=== PATIENT | female | born 1955 | race Asian ===

== ENCOUNTER → 2017-10-02 11:34 | Outpatient (CLI) | payer OTHER, SELFPAY ==
--- NOTE | 2017-10-02 11:38 | RAD_ITS ---
STUDY: X-RAY - RIGHT FOOT CLINICAL: Female, 62 years old. Soft tissue wound on second toe. TECHNIQUE: 3 view(s) of the foot. COMPARISON: None. FINDINGS: Normal talus, calcaneus, and tarsal bones. There is osteoarthrosis of the mid foot, tarsometatarsal articulations and metatarsophalangeal and interphalangeal joints. There is soft tissue swelling over the distal aspect of the second digit without bony erosion to suggest osteomyelitis. RAD/Foot min 3 Views IMPRESSION: Osteoarthritic changes. Soft tissue swelling with no evidence of osteomyelitis. Electronically Signed: Manjit Coello MD at 12:42 EDT , Service support ,
--- NOTE | 2017-10-02 11:38 | RAD_ITS ---
STUDY: X-RAY - LEFT KNEE REASON FOR EXAM: Female, 62 years old. Chronic knee pain. TECHNIQUE: 4 view(s) of the knee. COMPARISON: None. FINDINGS: Normal visualized distal femur. Normal visualized proximal tibia and fibula. Normal proximal tibiofibular articulation. There is moderate arthrosis of the medial, lateral and patellofemoral compartments. There is a superior patellar spur. Normal patellofemoral articulation. There is ossification of the distal quadriceps tendon. RAD/Knee 4 or More Views IMPRESSION: Tricompartmental arthrosis with patellar spur. No acute pathology. Electronically Signed: Manjit Coello MD at 12:42 EDT , Service support ,
[2017-10-02 14:48] LABS: Pathologist Comment May follow
[2017-10-02 16:34] LABS: Synovial Fld Mononuclear WBC % 88.9 %; Synovial Fld Polynuclear WBC # 0.029 10^3/ul; Synovial Fld Polynuclear WBC % 11.1 %
[2017-10-02 17:57] LABS: AUTO B FLUID DILUENT BKGD CT WBC <0.1 RBC <0.01 (W<.1,R<.01); Color / Synovial Fluid Yellow (Pale Yellow); Source / Synovial Fluid RIGHT KNEE; Source- Body Fluid SYNOVIAL
[2017-10-02 17:58] LABS: Appearance /Synovial Fluid Sl hazy (CLEAR); Neutrophil 8 % (0-25); RBC /Synovial Fluid 105 /mm3 (0); Synovial Fld Mononuclear WBC # 0.232 10^3/ul
[2017-10-02 17:59] LABS: Body Fluid QC Type(s) BF1Q,BF2Q; Lymph 33 %; Monocyte /Synovial Fluid 5 %; Other Cell /Synovial Fluid 54 %
[2017-10-03 13:52] LABS: Pathologist Review Reviewed
== END ==
PROVIDERS: Visit Provider Orthopaedic Surgery
DX: M17.0 Bilateral primary osteoarthritis of knee (principal); M25.761 Osteophyte, right knee; M20.41 Other hammer toe(s) (acquired), right foot
CPT/HCPCS: 73564; 73630; 87070; 87075; 87205; 89050; 89051; 89060

== ENCOUNTER → 2019-01-01 15:49 | Outpatient (CLI) | payer OTHER, SELFPAY ==
[2019-01-08 15:43] LABS: HPV Reflexed? NOT INDICATED
== END ==
PROVIDERS: Visit Provider Obstetrics & Gynecology
DX: Z12.4 Encounter for screening for malignant neoplasm of cervix (principal)
CPT/HCPCS: 88175; G0145

== ENCOUNTER → 2020-01-10 11:05 | Outpatient (CLI) | payer OTHER, SELFPAY ==
--- NOTE | 2020-01-10 11:05 | RAD_ITS ---
STUDY: X-RAY - LEFT KNEE REASON FOR EXAM: Female, 64 years old. BILATERAL KNEE PAIN TECHNIQUE: 4 view(s) of the knee. COMPARISON: None. FINDINGS: Normal visualized distal femur. Normal visualized proximal tibia and fibula. Normal proximal tibiofibular articulation. Normal medial femorotibial compartment. There is moderate to severe degenerative arthrosis of the lateral femorotibial compartment with moderate joint space narrowing. There is mild degenerative arthrosis of the patellofemoral articulation. There is lateral patellar tilt. The soft tissue structures are unremarkable. RAD/Knee 4 or More Views IMPRESSION: Degenerative arthrosis. Lateral patellar tilt. Electronically Signed: Concepcion Waters MD at 22:15 EDT Tel , Service support ,
--- NOTE | 2020-01-10 11:05 | RAD_ITS ---
STUDY: X-RAY - RIGHT KNEE REASON FOR EXAM: Female, 64 years old. BILATERAL KNEE PAIN TECHNIQUE: 4 view(s) of the knee. COMPARISON: None. FINDINGS: Normal visualized distal femur. Normal visualized proximal tibia and fibula. Normal proximal tibiofibular articulation. Normal medial femorotibial compartment. There is moderate to severe degenerative arthrosis of the lateral femorotibial compartment with moderate joint space narrowing. There is mild degenerative arthrosis of the patellofemoral articulation. The soft tissue structures are unremarkable. RAD/Knee 4 or More Views IMPRESSION: Degenerative arthrosis. Electronically Signed: Concepcion Waters MD at 22:17 EDT Tel , Service support ,
== END ==
PROVIDERS: Referring Provider Physician Assistant; Visit Provider Physician Assistant
DX: M17.0 Bilateral primary osteoarthritis of knee (principal)
CPT/HCPCS: 73564

== ENCOUNTER 2020-07-17 06:21 | Day surgery (SDC) | payer BC, SELFPAY ==
[2020-06-06 09:25] VITALS: BMI 44.1
[2020-07-17 06:49] VITALS: BP 150/82; PULSE 78; RESP 14; TEMP 37.1; O2SAT 98; BMI 45.2
[2020-07-17] MEDS: Lactated Ringers 1,000 ML 100 ML IV (07:03)
--- NOTE | 2020-07-17 07:32 | H&P.OPEN ---
History of Present Illness Date of Admission: 07/17/20 The patient is a 65 year old F who presents for colonoscopy. Patient had a positive Cologuard test. Past Medical/Surgical History - Planned Operation Planned Operative Procedure/s: COLONOSCOPY Date of Operative Procedure: 07/17/20 Permit Signed: Yes S.O.S: No Is This Patient Having a Total Joint: No - Previous Hospitalizations/Surgeries HX Hospitalizations: No HX of Surgeries: L HAND TENDON RECONSTRUCTION X2. MENISCUS R KNEE. TONSILS. ARTHROSCOPY R KNEE. POLYPS UTERUS Any Problems With Anesthesia: No You/Your Family Experience Fever (Hyperthermia) With Anes: No Cholinesterase deficiency: No - Cardiovascular Hx Chest Pain within Last 2 months: No Hx of Irregular Heartbeat and/or Afib: No Hx Heart Attack: No Hx Congestive Heart Failure: No Hx Rheumatic Fever: No Hx Hypertension: Yes - ON MED, CONTROLLED Hx Internal Defibrillator: No Hx Pacemaker: No Hx Cardiac Catheterization: No Hx Cardiac Surgery/Stents/Etc.: No Hx Stress Test: Yes - [facility] 2013 HX Edema: No Hx Pain in Legs when Walking/Leg Cramps: No - Respiratory Chronic Cough: No HX of Shortness of Breath: No Hoarseness: No Hx Chronic Obstructive Pulmonary Disease (COPD): No Hx Asthma: No Hx Emphysema: No Hx Sleep Apnea: No Hx Oxygen Use at Home: No Hx Respiratory Tract Infection/Cold (presently): No Do You Snore Loudly (louder than talking or can be heard): No Do You Often Feel Tired/ Fatigued/ Sleepy Dring Daytime?: No Has Anyone Observed You Stop Breathing During Sleep?: No Result (for STOP score): Negative Hx Smoking: No Smoking Status: Never smoker - Gastrointestinal Hx Gastroesophageal Reflux: No Hx Gastrointestinal Disorders: No Hx Gastrointestinal Bleed: No Hx Ulcer: No Hx Hiatal Hernia: No Difficulty Chewing/Swallowing: No Recent Onset of Swallowing Problems: No Special diet followed at home: No Hx Unplanned Weight Loss of 20#: No HX Unplanned Weight Gain of 20#: No - Neurological Hx Seizures: No HX Syncope/Blackout Spells/Unconsciousness: No Hx CVA/Stroke: No Hx Transient Ischemic Attacks (TIA): No Hx Multiple Sclerosis: No Hx Parkinson's Disease: No Hx Head/Neck Injury: No Hx Headaches: No Hx Back Injury/Pain: Yes Recent Onset of Speech Difficulty: No Restless Legs: No Does patient have nerve stimulator: No - Blood Disorder Hx Leukemia: No Bleeding Tendencies: No Hx Deep Vein Thrombosis: No Hx High Cholesterol: No Blood Transmitted Disease: No Hx Hepatitis: No Hx Cirrhosis: No Hx Anemia: No Hx Blood Disorders: No - Reproduction : No Is Patient Lactating: No Hx Hysterectomy: No Hx Tubal Ligation: No Are You Post Menopause: Yes - Genitourinary Hx Renal Disease: No - KIDNEY STONE 10 YRS AGO - Musculoskeletal Hx Arthritis: No Hx Rheumatoid Arthritis: No Hx Gout: No Recent Onset of an Orthopedic Problem: Yes - R KNEE -WEARS BRACE - Endocrine Hx Diabetes: No Thyroid Disease: No Hx Steroid Therapy: Yes - INJ IN KNEE - Psycho/Social Hx Substance Use: No Hx Alcohol Use: No Hx Anxiety: No Hx Depression: No Mental Illness: No Hx Dementia: No - Miscellaneous Hx Cancer: No Recent Exposure to Contagious Disease: No Active MRSA: No Hx of C-Diff: No Any Loose Teeth: Yes - UPPER PARTIAL Allergies No Known Allergies Allergy (Verified 07/12/20 10:31) - Discharge Is Pt Admitted From a Usp, or a Longterm: No Who Could Help: After D/C, Where Do you Plan to Go: Return Home - Physical Exam Vitals/I&O's: Vital Signs Temp Pulse Resp BP Pulse Ox 98.7 F 78 14 150/82 H 98 07/17/20 06:49 07/17/20 06:49 07/17/20 06:49 07/17/20 06:49 07/17/20 06:49 Oxygen Delivery Method Room Air Weight: 271 lb 13.279 oz Body Mass Index (BMI) 45.2 General: Alert, Oriented x3 Lungs: Clear to auscultation Cardiovascular: Regular rate, Regular Rhythm, No murmurs Abdomen: Bowel Sounds Present, Soft, Non Tender, Non-Distended Microbiology Past 72 Hours 07/14/20 12:00 Interface Orders SARS-CoV-2 Antigen (Rapid) - Final Current Medications Lactated Ringer's () 1,000 mls @ 100 mls/hr IV .Q10H CARTER Last Admin: 07/17/20 07:03 Dose: 100 mls/hr Documented by: Assessment/Plan All Active Problems (Last Reviewed 06/06/20 @ 10:[address] Awais Perla MD) History of arthroscopy of left knee (Acute) History of meniscectomy of right knee (Acute) History of tonsillectomy (Acute) History of hand surgery (Acute) Osteoarthritis (Acute) Varicose vein of leg (Acute) Obesity (Acute) Seasonal allergies (Acute) Knee pain (Acute) Back pain (Acute) Plan will be for a colonoscopy. Surgery Risks - Colonoscopy Risks Include but are not Limited To: Risks include but are not limited to: Bleeding, perforation requiring further surgery, inability to complete colonoscopy requiring barium enema.
[2020-07-17 07:48] VITALS: BP 104/68; BP 180/82; PULSE 76; RESP 18; TEMP 36.3; O2SAT 92
--- NOTE | 2020-07-17 07:49 | OP.CCLET_ITS ---
07/17/2020 [facility] [place] Re : Colonoscopy procedure for Angelica Baird This procedure was performed on Friday, July 17, 2020. My impressions and recommendations are as follows: Impressions : - Non-bleeding internal hemorrhoids. - The examination was otherwise normal. - No specimens collected. Recommendations : - Discharge patient to home. - Resume previous diet. - Continue present medications. - Repeat colonoscopy in 10 years for screening purposes. - Return to primary care physician at appointment to be scheduled. My findings are described in the full procedure note, which is enclosed. If I can be of further assistance, please feel free to contact me at Doctor phone number(s): , Fax: [phone], Work: . Sincerely, MD Awais Keating MD 07/17/2020 7:48:48 AM This report has been signed electronically.
--- NOTE | 2020-07-17 07:49 | OP.COLON_ITS ---
Patient Name: Angelica Wells Procedure Date: 07/17/2020 7:06 AM Date of : 1955 Age: 65 Procedure: Colonoscopy Indications: Positive Cologuard test Providers: Awais Perla MD Referring MD: Awais Perla MD Medicines: See the Anesthesia note for documentation of the administered medications Patient Profile: This is a 65 year old female. Refer to note in patient chart for documentation of history and physical. Last Colonoscopy: none. The patient's first colonoscopy is today. Complications: No immediate complications. Procedure: Pre-Anesthesia Assessment: - Prior to the procedure, a History and Physical was performed, and patient medications and allergies were reviewed. The patient's tolerance of previous anesthesia was also reviewed. The risks and benefits of the procedure and the sedation options and risks were discussed with the patient. All questions were answered, and informed consent was obtained. Prior Anticoagulants: The patient has taken no previous anticoagulant or antiplatelet agents. ASA Grade Assessment: III - A patient with severe systemic disease. After reviewing the risks and benefits, the patient was deemed in satisfactory condition to undergo the procedure. After I obtained informed consent, the scope was passed under direct vision. Throughout the procedure, the patient's blood pressure, pulse, and oxygen saturations were monitored continuously. The adult colonoscope was introduced through the anus and advanced to the cecum, identified by appendiceal orifice and ileocecal valve. The colonoscopy was performed without difficulty. The patient tolerated the procedure well. The quality of the bowel preparation was good. Scope In: 7:37:23 AM Scope Withdrawal Time 0 hours 6 minutes 35 seconds Scope Out: 7:45:56 AM Total Procedure Duration Time 0 hours 8 minutes 33 seconds Findings: Non-bleeding internal hemorrhoids were found during retroflexion. The hemorrhoids were mild and small. The exam was otherwise without abnormality. Impression: - Non-bleeding internal hemorrhoids. - The examination was otherwise normal. - No specimens collected. Recommendation: - Discharge patient to home. - Resume previous diet. - Continue present medications. - Repeat colonoscopy in 10 years for screening purposes. - Return to primary care physician at appointment to be scheduled. Procedure Code(s): --- Professional --- 39114, Colonoscopy, flexible; diagnostic, including collection of specimen(s) by brushing or washing, when performed (separate procedure) Diagnosis Code(s): --- Professional --- K64.8, Other hemorrhoids R19.5, Other fecal abnormalities CPT copyright 2017 [employer]. All rights reserved. The codes documented in this report are preliminary and upon milling machinist review may be revised to meet current compliance requirements. MD Awais Keating MD 07/17/2020 7:48:48 AM This report has been signed electronically. Number of Addenda: 0 Note Initiated On: 07/17/2020 7:06 AM
[2020-07-17 07:55] VITALS: BP 118/74; BP 180/82; PULSE 74; RESP 18; O2SAT 92
[2020-07-17 08:00] VITALS: BP 123/75; BP 180/82; PULSE 70; RESP 18; O2SAT 93
[2020-07-17 08:04] VITALS: BP 133/84; BP 180/82; PULSE 67; RESP 18; TEMP 36.5; O2SAT 94
[2020-07-17 08:30] VITALS: BP 180/82
== END 2020-07-17 08:45 | disposition home or self-care (01) ==
LOC: EN 06:22
PROVIDERS: PCP Family Medicine; Referring Provider Surgery; Visit Provider Surgery
PROC: 0DJD8ZZ Inspection of Lower Intestinal Tract, Via Natural or Artificial Opening Endoscopic (ICD-10-PCS; CPT 45378; principal; 2020-07-17 07:25)
DX: R19.5 Other fecal abnormalities (principal); Z20.828 Contact with and (suspected) exposure to other viral communicable diseases; K64.8 Other hemorrhoids
CPT/HCPCS: 45378; 87426; C9803; J7120; J2405

== ENCOUNTER → 2024-01-05 | Outpatient (CLI) | payer MEDICARE, SELFPAY ==
--- NOTE | 2024-01-05 12:56 | BI_ITS ---
MAMMOGRAPHY - BILATERAL SCREENING 3-D TOMOSYNTHESIS REASON FOR EXAM: Female, 68 years old. SCREENING PERTINENT HISTORY: No significant family history. TECHNIQUE: 2-D mammograms and 3-D Tomosynthesis of the breast (s) were performed. CAD was performed. COMPARISON: 01/21/2019 FINDINGS: The breast composition is composed of scattered fibroglandular density. Scattered benign calcifications are seen. No dense spiculated masses or suspicious microcalcifications are identified. No architectural distortion is identified. There is no skin thickening or retraction. There has been no significant change since the prior study. BI/SCRN MAMM (CAD)W/ENEDINA BILAT IMPRESSION: No mammographic signs of malignancy. Routine yearly mammograms recommended. ASSESSMENT CATEGORY: BIRADS Category 1: Negative. A letter regarding these results will be sent to the patient by the facility within 30 days. FOLLOW UP RECOMMENDATION: Yearly follow up mammogram recommended. (A) Approximately 10% of breast cancers are not detected by mammography. A normal mammogram should not delay biopsy of a clinically suspicious abnormality. Electronically Signed: Haile Carlson MD at 16:36 EDT ,
== END | disposition home or self-care (01) ==
LOC: OPBI 12:55
PROVIDERS: PCP Family Medicine; Referring Provider Family Medicine; Visit Provider Family Medicine
DX: Z12.31 Encounter for screening mammogram for malignant neoplasm of breast (principal)
CPT/HCPCS: 77063; 77067